=== PATIENT | female | born 1965 | race Hispanic/Latino ===

== ENCOUNTER 2017-11-21 04:53 | Inpatient (IN) | payer MEDICARE, MEDICAID ==
--- NOTE | 2017-11-21 05:19 | ED PDOC ---
HPI: Psych/Substance Abuse Time Seen by Provider: 11/21/17 04:57 Chief Complaint (Nursing): Psychiatric Evaluation Chief Complaint (Provider): "I'm scared" History Per: Patient, EMS History/Exam Limitations: no limitations Additional Complaint(s): 52 yo female with history of bipolar disorder presents with EMS for psychiatric evaluation. PT was [place] bizarre [place] the [place]. Pt repeatedly states she is scared. PT denies alcohol or drug use. Past Medical History Reviewed: Historical Data, Nursing Documentation, Vital Signs Vital Signs: Last Vital Signs Temp 97.7 F 11/21/17 05:08 Pulse 109 H 11/21/17 05:08 Resp 18 11/21/17 05:08 BP 136/89 11/21/17 05:08 Pulse Ox 98 11/21/17 05:08 - Medical History PMH: Bipolar Disorder - Surgical History Surgical History: No Surg Hx - Family History Family History: States: No Known Family Hx - Living Arrangements Living Arrangements: With Family - Immunization History Hx Tetanus Toxoid Vaccination: No Hx Influenza Vaccination: No Hx Pneumococcal Vaccination: No - Home Medications Home Medications: Ambulatory Orders Medication Instructions Recorded Fluticasone Nasal [Flonase] 1 spr NS BID #120 spr 11/09/17 Lorazepam [Ativan] 0.5 mg PO BID 11/09/17 Pantoprazole Sodium [Protonix] 40 mg PO DAILY 11/09/17 Risperidone 4 mg PO DAILY 11/09/17 - Allergies Allergies/Adverse Reactions: Allergies Allergy/AdvReac Type Severity Reaction Status Date / Time Penicillins Allergy Unknown unknown Verified 11/21/17 05:07 Review of Systems ROS Statement: Except As Marked, All Systems Reviewed And Found Negative Constitutional: Negative for: Fever, Chills, Sweats Psych: Positive for: Psychosis. Negative for: Suicidal ideation, Other Physical Exam - Reviewed Nursing Documentation Reviewed: Yes Vital Signs Reviewed: Yes - Physical Exam Appears: Positive for: Well, Non-toxic, No Acute Distress Head Exam: Positive for: ATRAUMATIC, NORMAL INSPECTION, NORMOCEPHALIC Skin: Positive for: Normal Color, Warm, DRY Eye Exam: Positive for: Normal appearance ENT: Positive for: Normal ENT Inspection Neck: Positive for: Normal, Painless ROM Cardiovascular/Chest: Positive for: Regular Rate, Rhythm Respiratory: Positive for: Normal Breath Sounds. Negative for: Accessory Muscle Use, Respiratory Distress Back: Positive for: Normal Inspection Extremity: Positive for: Normal ROM Neurologic/Psych: Positive for: Alert, Oriented - ECG O2 Sat by Pulse Oximetry: 98 Pulse Ox Interpretation: Normal Medical Decision Making Medical Decision Making: Continued care by Dr. Atwood. Disposition - Clinical Impression Clinical Impression: Encounter for psychiatric assessment - Patient ED Disposition Is Patient to be Admitted: Transfer of Care - Disposition Disposition: Transfer of Care Disposition Time: 06:10 Condition: STABLE Forms: [employer] (Senegalese)
[2017-11-21 05:44] LABS: SQUAMOUS EPITHIAL 2 /hpf (0-5); URINE BACTERIA OCC (<OCC); URINE BILIRUBIN NEGATIVE (NEGATIVE); URINE BLOOD NEGATIVE (NEGATIVE); URINE CLARITY SLIGHTY-CLOUDY (Clear); URINE COLOR YELLOW (YELLOW); URINE GLUCOSE (UA) NEG (Normal); URINE LEUKOCYTE ESTERASE NEG Leu/uL (Negative); URINE PROTEIN NEGATIVE (NEGATIVE); URINE UROBILINOGEN 0.2-1.0 mg/dL (0.2-1.0)
[2017-11-21 05:56] LABS: BARBITURATES, UR NEGATIVE (NEGATIVE); BENZODIAZEPINES, UR NEGATIVE (NEGATIVE); OPIATES, UR NEGATIVE (NEGATIVE); PHENCYCLIDINE, UR NEGATIVE (NEGATIVE)
--- NOTE | 2017-11-21 06:11 | ED PDOC ---
- ECG ECG Rhythm: Positive for: Normal QRS, Normal ST Segment, Sinus Rhythm Rate: 77 O2 Sat by Pulse Oximetry: 98 (RA) Pulse Ox Interpretation: Normal Medical Decision Making Medical Decision Making: Time: 6:00 Patient was signed out to me by XANDER Dickinson pending crisis evaluation and final disposition. Crisis evaluation completed. Patient will be admitted for Bipolar disorder under Dr. Hammond. 7:00 Patient will be signed out to Dr. Zuluaga pending CMP and CBC. Scribe Attestation: Documented by Raina Reeder, acting as a scribe for Ernst Atwood MD. Provider Scribe Attestation: All medical record entries made by the Scribe were at my direction and personally dictated by me. I have reviewed the chart and agree that the record accurately reflects my personal performance of the history, physical exam, medical decision making, and the department course for this patient. I have also personally directed, reviewed, and agree with the discharge instructions and disposition. Disposition - Clinical Impression Clinical Impression: Encounter for psychiatric assessment, Bipolar disorder - POA Present On Arrival: None - Disposition Disposition: Transfer of Care Disposition Time: 07:00 Condition: STABLE
[2017-11-21 07:36] LABS: ALB/GLOB RATIO 1.4 (1.0-2.1); ALBUMIN 4.4 g/dL (3.5-5.0); ALT/SGPT 40 U/L (9-52); AST/SGOT 29 U/L (14-36); BLOOD UREA NITROGEN 15 mg/dl (7-17); CALCIUM 9.7 mg/dL (8.4-10.2); GFR NON-AFRICAN AMERICAN > 60
[2017-11-21 07:42] LABS: HEMOGLOBIN 14.1 g/dL (12.0-16.0); MEAN CELL VOLUME 85.6 fl (81.0-99.0); MEAN CORPUSCULAR HEMOGLOBIN 28.8 pg (27.0-31.0); MEAN CORPUSCULAR HGB CONC 33.7 g/dL (33.0-37.0); RBC 4.88 Mil/uL (3.80-5.20); RED CELL DISTRIBUTION WIDTH 14.3 % (11.5-14.5); WHITE BLOOD COUNT 7.7 K/uL (4.8-10.8)
--- NOTE | 2017-11-21 08:12 | ED PDOC ---
- Laboratory Results Result Diagrams: 11/21/17 06:50 11/21/17 06:50 - ECG O2 Sat by Pulse Oximetry: 98 (RA) Medical Decision Making Medical Decision Making: Medically stable for psychiatric admission Disposition - Clinical Impression Clinical Impression: Encounter for psychiatric assessment, Bipolar disorder - POA Present On Arrival: None - Disposition Disposition: Admitted as In-Patient Disposition Time: 08:11 Condition: FAIR
[2017-11-21 09:05] VITALS: O2SAT 94
[2017-11-21] MEDS ORDERED: Magnesium Hydroxide Susp 30 ml UD PO PRN (10:51)
[2017-11-21] MEDS ORDERED: Alum-Mag Hydrox-Simethicone Susp (30 mL) PO PRN (10:51)
[2017-11-21] MEDS ORDERED: DiphenhydrAMINE 50 mg/ml Inj IM PRN (10:51)
--- NOTE | 2017-11-21 11:14 | PCM.PSYCH ---
Initial Psychiatric Evaluation - Initial Psychiatric Evaluation Type of Admission: Voluntary Legal Status: Capacity Chief Complaint (in patient's own words): I got lost outside Patient's Reaction to Hospitalization: pt requested help History of Present Illness and Precipitating Events: pt is a 52 ys old female, with previous psychiatric diagnosis of schizophrenia brought to ER by police after exhibiting disorganized behavior by train station pt in ER presented with disorganized speech, loose association, guarded and paranoid , reportedly pt has been discharged two weeks ago from [facility], non compliant with medications or follow up, started decompensating and became increasingly disorganized and was as per pt asked to leave the [facility] pt on the unit presenting with disorganized thought process, loose association, unable to verbalize why she is in the hospital and exhibiting thought blocking and internally preoccupied appears responding to internal stimuli pt denied command hallucinations, denied suicidal or homicidal ideation collateral information CW spoke to Venessa from [facility] who stated pt was admitted to their psych unit last month from 10/15-10/30. She stated pt has an hx of schizophrenia, bipolar d/o , and anxiety. She stated pt is homeless. She stated pt was confused and disorganized last month. She stated pt was staying at [facility]. Current Medications: Active Medications Generic Name Dose Route Start Last Admin Trade Name Freq PRN Reason Stop Dose Admin Acetaminophen 650 mg 11/21/17 10:51 Tylenol 325mg Tab PO Q4 PRN Pain, moderate (4-7) Al Hydrox/Mg Hydrox/Simethicone 30 ml 11/21/17 10:51 Maalox Plus 30 Ml PO Q4 PRN Dyspepsia Diphenhydramine HCl 50 mg 11/21/17 10:51 Benadryl IM Q6 PRN Extrapyramidal S/S Unable PO Diphenhydramine HCl 50 mg 11/21/17 10:51 Benadryl PO Q6 PRN Extrapyramidal Symptoms Haloperidol 5 mg 11/21/17 10:51 Haldol PO Q6 PRN Agitation Haloperidol Lactate 5 mg 11/21/17 10:51 Haldol IM Q6 PRN Agitation, Unable to Take PO Lorazepam 1 mg 11/21/17 10:51 Ativan PO Q4 PRN Anxiety/Agitation Magnesium Hydroxide 30 ml 11/21/17 10:51 Milk Of Magnesia PO HS PRN Constipation Risperidone 1 mg 11/21/17 11:00 Risperdal M-Tab PO DAILY [facility] Past Psychiatric History - Past Psychiatric History Explanation of prior treatment: pt reported multiple inpatient hospitalizations, hx of non compliance with treatment or follow up History of ETOH/Drug Use: pt denied Pertinent Medical Hx (Current Medical&Sleep Prob, Allergies): Allergies Allergy/AdvReac Type Severity Reaction Status Date / Time Penicillins Allergy Unknown unknown Verified 11/21/17 05:07 Fluticasone Nasal [Flonase] 1 spr NS BID #120 spr 11/09/17 Lorazepam [Ativan] 0.5 mg PO BID 11/09/17 Pantoprazole Sodium [Protonix] 40 mg PO DAILY 11/09/17 Risperidone 4 mg PO DAILY 11/09/17 Mental Status Examination - Personal Presentation Personal Presentation: Looks older than stated age - Affect Affect: Constricted, Depressed - Motor Activity Motor Activity: Psychomotor Retardation - Reliability in Providing Information Reliability in Providing Information: Poor, due to alteration in thoughts, Poor , due to altered mood - Speech Speech: Disorganized, Irrelevant, Tangential - Mood Mood: Anxious - Formal Thought Process Formal Thought Process: Paranoia, Loosening of associations, Flight of ideas, Neologism - Hallucinations/Delusions Additional comments: pt denied perceptual disturbances, appears internally preoccupied - Obsessions/Compulsions Obsessions: No Compulsions: No - Cognitive Functions Orientation: Person Attention/Concentration: Easily distracted Abstract Thinking: Munday Judgement: Imparied, as evidence by: Poor judgement, Imparied, as evidence by: Lack of insight into illness - Risk Risk: Diminished functioning - Strength & Assets Inventory Strength & Assets Inventory: Life experience - Limitations Additional comments: poor compliance DSM 5 DX - DSM 5 DSM 5 Diagnosis: schizophrenia disorganized type - Recommended/Plan of Treatment Treatment Recommendations and Plan of Treatment: pt will be started on risperidone 1mg daily and 2mg qhs trazodone 50mg qhs pt will be monitored for psychopharmacological effects and side effect profile group and supportive therapy social media intern would contact senior living for collateral information Projected ELOS: 7 days Prognosis: guarded
[2017-11-21] MEDS: Risperidone M tab 1 MG PO SCH (13:25)
--- NOTE | 2017-11-21 18:03 | CP.PCM.CON ---
History of Present Illness - History of Present Illness History of Present Illness: 52 y/o female, with PMH of schizophrenia was brought to ER by police [place] station.Patient has long history of schizophrenia and was recently discharged from [facility] psychiatric unit.Patient in ER presented with disorganized speech ad thought process and is admitted to psych unit. Medicine consult called. At present she denies any pain or discomfort but unable to carry a proper conversation and answer questions appropriately Denies any chest pain or SOB , urinary sx , abdominal pain , cough Allergies ; NKDa PMH : schizophrenia Medications ; risperdal Surgery '; None family history ; None Social history ; Lives in [facility] , homeless, does not like to answer about her marital status, denies ETOH or drug abuse, smokes ?? unemployed Past Patient History - Infectious Disease Hx of Infectious Diseases: None - Past Social History Smoking Status: Heavy Smoker > 10 Cigarettes Daily - CARDIAC Hx Cardiac Disorders: No - PULMONARY Hx Respiratory Disorders: No - NEUROLOGICAL Hx Neurological Disorder: No Hx Seizures: No - HEENT Hx HEENT Problems: No - RENAL Hx Chronic Kidney Disease: No - ENDOCRINE/METABOLIC Hx Endocrine Disorders: No - HEMATOLOGICAL/ONCOLOGICAL Hx Blood Disorders: No - INTEGUMENTARY Hx Dermatological Problems: No - MUSCULOSKELETAL/RHEUMATOLOGICAL Hx Musculoskeletal Disorders: No - GASTROINTESTINAL Hx Gastrointestinal Disorders: No - GENITOURINARY/GYNECOLOGICAL Hx Genitourinary Disorders: No - PSYCHIATRIC Hx Anxiety: Yes Hx Bipolar Disorder: Yes Hx Schizophrenia: Yes Hx Substance Use: No - SURGICAL HISTORY Hx Surgeries: No - ANESTHESIA Hx Anesthesia: No Meds Allergies/Adverse Reactions: Allergies Allergy/AdvReac Type Severity Reaction Status Date / Time Penicillins Allergy Unknown unknown Verified 11/21/17 05:07 - Medications Medications: Current Medications Acetaminophen (Tylenol 325mg Tab) 650 mg PO Q4 PRN PRN Reason: Pain, moderate (4-7) Al Hydrox/Mg Hydrox/Simethicone (Maalox Plus 30 Ml) 30 ml PO Q4 PRN PRN Reason: Dyspepsia Benztropine Mesylate (Cogentin) 0.5 mg PO HS MARCY Diphenhydramine HCl (Benadryl) 50 mg IM Q6 PRN PRN Reason: Extrapyramidal S/S Unable PO Diphenhydramine HCl (Benadryl) 50 mg PO Q6 PRN PRN Reason: Extrapyramidal Symptoms Haloperidol (Haldol) 5 mg PO Q6 PRN PRN Reason: Agitation Haloperidol Lactate (Haldol) 5 mg IM Q6 PRN PRN Reason: Agitation, Unable to Take PO Lorazepam (Ativan) 1 mg PO Q4 PRN PRN Reason: Anxiety/Agitation Last Admin: 11/21/17 13:25 Dose: 1 mg Magnesium Hydroxide (Milk Of Magnesia) 30 ml PO HS PRN PRN Reason: Constipation Risperidone (Risperdal M-Tab) 1 mg PO DAILY MARCY Last Admin: 11/21/17 13:25 Dose: 1 mg Risperidone (Risperdal M-Tab) 2 mg PO HS MARCY Trazodone HCl (Desyrel) 50 mg PO HS MARCY Results - Vital Signs Recent Vital Signs: Last Vital Signs Temp 98.4 F 11/21/17 09:00 Pulse 85 11/21/17 09:00 Resp 20 11/21/17 15:55 BP 130/75 11/21/17 09:00 Pulse Ox 94 L 11/21/17 09:00 - Labs Result Diagrams: 11/21/17 06:50 11/21/17 06:50 Labs: Laboratory Results - last 24 hr 11/21/17 11/21/17 11/21/17 05:31 05:31 06:50 WBC RBC Hgb Hct MCV MCH MCHC RDW Plt Count Sodium 140 Potassium 4.1 Chloride 104 Carbon Dioxide 27 Anion Gap 13 BUN 15 Creatinine 0.6 L Est GFR ( Amer) > 60 Est GFR (Non-Af Amer) > 60 Random Glucose 81 Calcium 9.7 Total Bilirubin 2.1 H AST 29 ALT 40 Alkaline Phosphatase 63 Total Protein 7.4 Albumin 4.4 Globulin 3.0 Albumin/Globulin Ratio 1.4 Urine Color Yellow Urine Clarity Slighty-cloudy Urine pH 6.0 Ur Specific Zenia 1.009 Urine Protein Negative Urine Glucose (UA) Neg Urine Ketones Negative Urine Blood Negative Urine Nitrate Negative Urine Bilirubin Negative Urine Urobilinogen 0.2-1.0 Ur Leukocyte Esterase Neg Urine RBC (Auto) 1 Urine Microscopic WBC 1 Ur Squamous Epith Cells 2 Urine Bacteria Occ H Urine Opiates Screen Negative Urine Methadone Screen Negative Ur Barbiturates Screen Negative Ur Phencyclidine Scrn Negative Ur Amphetamines Screen Negative U Benzodiazepines Scrn Negative U Oth Cocaine Metabols Negative U Cannabinoids Screen Negative Alcohol, Quantitative < 10 11/21/17 06:50 WBC 7.7 RBC 4.88 Hgb 14.1 Hct 41.8 MCV 85.6 MCH 28.8 MCHC 33.7 RDW 14.3 Plt Count 214 Sodium Potassium Chloride Carbon Dioxide Anion Gap BUN Creatinine Est GFR ( Amer) Est GFR (Non-Af Amer) Random Glucose Calcium Total Bilirubin AST ALT Alkaline Phosphatase Total Protein Albumin Globulin Albumin/Globulin Ratio Urine Color Urine Clarity Urine pH Ur Specific Zenia Urine Protein Urine Glucose (UA) Urine Ketones Urine Blood Urine Nitrate Urine Bilirubin Urine Urobilinogen Ur Leukocyte Esterase Urine RBC (Auto) Urine Microscopic WBC Ur Squamous Epith Cells Urine Bacteria Urine Opiates Screen Urine Methadone Screen Ur Barbiturates Screen Ur Phencyclidine Scrn Ur Amphetamines Screen U Benzodiazepines Scrn U Oth Cocaine Metabols U Cannabinoids Screen Alcohol, Quantitative Assessment & Plan - Assessment and Plan (Free Text) Assessment: 52 y/o female, with PMH of schizophrenia was brought to ER by police [place] station.Patient has long history of schizophrenia and was recently discharged from [facility] psychiatric unit.Patient in ER presented with disorganized speech ad thought process and is admitted to psych unit. Medicine consult called. At present she denies any pain or discomfort but unable to carry a proper conversation and answer questions appropriately Denies any chest pain or SOB , urinary sx , abdominal pain , cough. 1. Schizophrenia management as per psych no medical issues identified at present will follow up
[2017-11-21] MEDS ORDERED: Risperidone M TAB 2 MG PO SCH (22:00)
[2017-11-22 08:36] LABS: T4 11.7 ug/dl (5.5-11.0)
[2017-11-22] MEDS: Risperidone M tab 1 MG PO SCH ×2 (09:02→17:30)
[2017-11-22] MEDS ORDERED: Divalproex 500 mg DR(BID formulation) PO STA (12:07)
--- NOTE | 2017-11-22 12:20 | PCM.PYCHPN ---
Psychiatric Progress Note - Psychiatric Progress Note Patient seen today, length of contact: pt evaluated discussed with team chart reviewed Patient Chief Complaint: I want to leave [place] Problems Identified/Issues Discussed: pt on evaluation presenting with disorganized thought process, , derailment , neologism, loose association floridly psychotic exhibiting F[place]oli phenomena identifying some staff members as her own family members, mood is very labile , at times tearful and other times, irritable and edgy, verbally aggressive and sexually pre occupied pt with grandiose delusions and limited insight into illness, neurocognitive deficits elicited , pt mini mental status noted to be 25/30 oriented to person partially to place, stating season is , pt unable to provide information about childhood, her family members or circumstances leading to her admission denied recent substance use, agreed to comply with medications denied command hallucinations , denied suicidal or homicidal ideation Medical Problems: pt reported multiple inpatient hospitalizations, hx of non compliance with treatment or follow up DSM 5 Symptoms Update: schizoaffective disorder bipolar Major neurocognitive disorder Medication Change: Yes (start haldol and depakote ) Medical Record Reviewed: Yes Mental Status Examination - Cognitive Function Orientation: Person Memory: Impaired, Recent Attention: Poor Concentration: Poor Association: Loose Fund of Knowledge: Poor Decription of patient's judgement and insights: poor insight and judgment - Mood Mood: Anxious - Affect Affect: Depressed Additional comments: labile, elevated - Speech Speech: Pressured - Formal Thought Process Formal Thought Process: Paranoia, Loosening of associations, Flight of ideas, Neologism - Suicidal Ideation Suicidal Ideation: No - Homicidal Ideation Homicidal Ideation: No Goal/Treatment Plan - Goal/Treatment Plan Need for Continued Stay: Severe depression anxiety, Discharge may exacerbated symptoms, Failed transitioning, Severe functional impairment Progress Toward Problem(s) and Goals/Treatment Plan: discontinue risperidone start haldol 2mg tid and cogentin 0.5mg tid , will increase haldol gradually start depakote 500mg bid pt will be monitored for psychopharmacological effects and side effect profile group and supportive therapy social worker psychiatric would contact [facility] for collateral information
[2017-11-22] MEDS ORDERED: Divalproex 500 mg DR(BID formulation) PO SCH (17:00)
[2017-11-22] MEDS ORDERED: OXcarbazepine 300 mg/5 ml Syringe PO SCH (17:00)
[2017-11-22] MEDS ORDERED: Petrolatum UD PAK TOP PRN (17:39)
[2017-11-23] MEDS: Risperidone M tab 1 MG PO SCH (08:51)
--- NOTE | 2017-11-23 15:09 | PCM.PYCHPN ---
Psychiatric Progress Note - Psychiatric Progress Note Patient seen today, length of contact: pt evaluated discussed with team chart reviewed Patient Chief Complaint: I do not want my family only my boyfriend Problems Identified/Issues Discussed: pt on evaluation continues to be manic , presenting with labile mood and affect , disorganized loud speech , intrusive with other patients thought process not goal directed, with grandiose delusions ,edgy and irritable pt with limited insight into illness , needs a lot of encouragement to comply with medications and to attend groups pt denied command hallucinations, denied suicidal or homicidal ideation Medical Problems: pt reported multiple inpatient hospitalizations, hx of non compliance with treatment or follow up DSM 5 Symptoms Update: schizoaffective disorder bipolar Medication Change: Yes (increase risperidone and trileptal) Medical Record Reviewed: Yes Mental Status Examination - Cognitive Function Orientation: Person, Place Memory: Impaired, Recent Attention: Poor Concentration: Poor Association: Loose Fund of Knowledge: Poor Decription of patient's judgement and insights: poor insight and judgment - Mood Mood: Anxious - Affect Affect: Broad, Depressed Additional comments: labile irritable, manic - Speech Speech: Loud, Pressured - Formal Thought Process Formal Thought Process: Paranoia, Loosening of associations, Flight of ideas, Neologism - Suicidal Ideation Suicidal Ideation: No - Homicidal Ideation Homicidal Ideation: No Goal/Treatment Plan - Goal/Treatment Plan Need for Continued Stay: Severe depression anxiety, Discharge may exacerbated symptoms, Failed transitioning, Severe functional impairment Progress Toward Problem(s) and Goals/Treatment Plan: increase risperidone to 4mg bid, cogentin 0.5mg bid increase trileptal to 300mg daily and 600mg qhs encourage medication compliance pt will be monitored for psychopharmacological effects and side effect profile group and supportive therapy web content & social media manager would contact skilled nursing for collateral information
[2017-11-23] MEDS: Risperidone M TAB 2 MG PO SCH (17:37)
[2017-11-23] MEDS: Benzocaine/Menthol (Cepacol) Lozenge PO PRN ×2 (17:42→22:38)
[2017-11-24] MEDS: guaiFENesin DM 200 mg-20 mg/10 ml UD PO PRN (07:36)
[2017-11-24] MEDS: Risperidone M TAB 2 MG PO SCH ×2 (09:30→17:35)
--- NOTE | 2017-11-24 11:15 | PCM.PYCHPN ---
Psychiatric Progress Note - Psychiatric Progress Note Patient seen today, length of contact: Patient evaluated, case discussed w/ team , chart reviewed Patient Chief Complaint: "I need to rest today." Problems Identified/Issues Discussed: Patient continues to be manic, labile, inappropriately happy at times, w/ pressured, disorganized, non-linear speech. She denies AH/VH/SI/HI. She has poor insight into her current psychiatric decompensation. Medication Change: No Medical Record Reviewed: Yes Consults ordered or reviewed: Medicine consult Mental Status Examination - Cognitive Function Orientation: Person, Place Memory: Impaired, Recent Attention: Poor Concentration: Poor Association: Loose Fund of Knowledge: Poor Decription of patient's judgement and insights: Poor I/J - Mood Mood: Anxious - Affect Affect: Other (Labile) - Speech Speech: Pressured - Formal Thought Process Formal Thought Process: Loosening of associations, Flight of ideas Psychotic Thoughts and Behaviors: Denies AH/VH but seems internally preoccupied at times - Suicidal Ideation Suicidal Ideation: No - Homicidal Ideation Homicidal Ideation: No Goal/Treatment Plan - Goal/Treatment Plan Need for Continued Stay: Severe depression anxiety, Discharge may exacerbated symptoms, Failed transitioning, Severe functional impairment Progress Toward Problem(s) and Goals/Treatment Plan: Schizoaffective Disorder -Continue Risperdal, Cogentin, Trileptal and Trazodone -Individual and group therapy -Psychoeducation -Disposition planning Estimated Date of D/C: 11/29/17
--- NOTE | 2017-11-25 07:56 | PCM.PYCHPN ---
Psychiatric Progress Note - Psychiatric Progress Note Patient seen today, length of contact: Patient evaluated, case discussed w/ team , chart reviewed Patient Chief Complaint: "I want to be a larriman for fruits and vegetables." Problems Identified/Issues Discussed: Patient continues to be manic, labile, inappropriately happy at times, w/ pressured, disorganized, non-linear speech. +Poor sleep. +Refuses medication intermittently. She denies AH/VH/SI/HI. She has poor insight into her current psychiatric decompensation. +Grandiose. She believes she has supernatural hearing abilities. She is walking around w/ a hospital face mask, stating that she needs to protect herself from dust, pollution from traffic (despite being indoors) and cigarette smoke that comes from other people. Medication Change: No Medical Record Reviewed: Yes Consults ordered or reviewed: Medicine consult Mental Status Examination - Cognitive Function Orientation: Person, Place Memory: Impaired, Recent Attention: Poor Concentration: Poor Association: Loose Fund of Knowledge: Poor Decription of patient's judgement and insights: Poor I/J - Mood Mood: Anxious - Affect Affect: Other (Labile) - Speech Speech: Pressured - Formal Thought Process Formal Thought Process: Loosening of associations, Flight of ideas Psychotic Thoughts and Behaviors: Denies AH/VH but seems internally preoccupied at times - Suicidal Ideation Suicidal Ideation: No - Homicidal Ideation Homicidal Ideation: No Goal/Treatment Plan - Goal/Treatment Plan Need for Continued Stay: Severe depression anxiety, Discharge may exacerbated symptoms, Failed transitioning, Severe functional impairment Progress Toward Problem(s) and Goals/Treatment Plan: Schizoaffective Disorder -Continue Risperdal, Cogentin, Trileptal and Trazodone -Individual and group therapy -Psychoeducation -Disposition planning Estimated Date of D/C: 11/29/17
[2017-11-25] MEDS: Risperidone M TAB 2 MG PO SCH ×2 (08:48→17:48)
[2017-11-25] MEDS: guaiFENesin DM 200 mg-20 mg/10 ml UD PO PRN (08:48)
[2017-11-25] MEDS ORDERED: Tuberculin 5 Units/0.1 ml Inj ID ONE (16:00)
[2017-11-25] MEDS: Benzocaine/Menthol (Cepacol) Lozenge PO PRN (17:47)
--- NOTE | 2017-11-26 09:33 | PCM.PYCHPN ---
Psychiatric Progress Note - Psychiatric Progress Note Patient seen today, length of contact: Patient evaluated, case discussed w/ team , chart reviewed Patient Chief Complaint: "I'm feeling better." Problems Identified/Issues Discussed: Patient continues to be inappropriately happy w/ tangential speech, but she is calmer, less manic and more organized on conversation. She has been compliant w / medications. She continues to have sleep disturbances. She continues to have poor insight/judgment. Medication Change: No Medical Record Reviewed: Yes Consults ordered or reviewed: Medicine consult Mental Status Examination - Cognitive Function Orientation: Person, Place Memory: Impaired, Recent Attention: Poor Concentration: Poor Association: Loose Fund of Knowledge: Poor Decription of patient's judgement and insights: Poor I/J - Mood Mood: Euphoric - Affect Affect: Other (Labile) - Speech Speech: Pressured - Formal Thought Process Formal Thought Process: Loosening of associations, Flight of ideas Psychotic Thoughts and Behaviors: Denies AH/VH - Suicidal Ideation Suicidal Ideation: No - Homicidal Ideation Homicidal Ideation: No Goal/Treatment Plan - Goal/Treatment Plan Need for Continued Stay: Severe depression anxiety, Discharge may exacerbated symptoms, Failed transitioning, Severe functional impairment Progress Toward Problem(s) and Goals/Treatment Plan: Schizoaffective Disorder -Continue Risperdal, Cogentin, Trileptal and Trazodone -Individual and group therapy -Psychoeducation -Disposition planning Estimated Date of D/C: 11/29/17
[2017-11-26] MEDS: Risperidone M TAB 2 MG PO SCH ×2 (09:39→18:22)
[2017-11-26] MEDS: Pantoprazole 40 mg EC Tab PO SCH (09:39)
[2017-11-26] MEDS: Benzocaine/Menthol (Cepacol) Lozenge PO PRN (09:43)
[2017-11-26] MEDS: guaiFENesin DM 200 mg-20 mg/10 ml UD PO PRN (18:25)
[2017-11-27] MEDS: Pantoprazole 40 mg EC Tab PO SCH (08:27)
[2017-11-27] MEDS: Risperidone M TAB 2 MG PO SCH ×2 (08:27→18:10)
[2017-11-27] MEDS: guaiFENesin DM 200 mg-20 mg/10 ml UD PO PRN (08:27)
--- NOTE | 2017-11-27 15:02 | PCM.PYCHPN ---
Psychiatric Progress Note - Psychiatric Progress Note Patient seen today, length of contact: Patient evaluated, case discussed w/ team , chart reviewed Patient Chief Complaint: I want to find a job Problems Identified/Issues Discussed: pt evaluated with treatment team, less labile and thought process less disorganized, continues to have overproductive speech, discussed with pt importance of medication compliance , pt agreed to be stated on risperidone consta to ensure compliance pt denied command hallucinations, denied suicidal or homicidal ideation Medical Problems: pt reported multiple inpatient hospitalizations, hx of non compliance with treatment or follow up DSM 5 Symptoms Update: schizoaffective disorder bipolar Medication Change: Yes (start risperidone consta ) Medical Record Reviewed: Yes Mental Status Examination - Cognitive Function Orientation: Person, Place Memory: Impaired, Recent Attention: WNL Concentration: Poor Association: WNL Fund of Knowledge: Poor Decription of patient's judgement and insights: poor insight and judgment - Mood Mood: Neutral - Affect Affect: Other Additional comments: expanded - Speech Additional comments: over productive - Formal Thought Process Formal Thought Process: Circumstantial Psychotic Thoughts and Behaviors: pt denied perceptual disturbances, non elicited - Suicidal Ideation Suicidal Ideation: No - Homicidal Ideation Homicidal Ideation: No Goal/Treatment Plan - Goal/Treatment Plan Need for Continued Stay: Severe depression anxiety, Discharge may exacerbated symptoms, Failed transitioning, Severe functional impairment Progress Toward Problem(s) and Goals/Treatment Plan: continue risperidone to 4mg bid, cogentin 0.5mg bid, start risperidone consta 50mg IM q 2weeks to ensure compliance itrileptal 300mg daily and 600mg qhs encourage medication compliance pt will be monitored for psychopharmacological effects and side effect profile group and supportive therapy Estimated Date of D/C: 11/29/17
[2017-11-27 18:54] VITALS: BMI 27.7
[2017-11-28] MEDS: Benzocaine/Menthol (Cepacol) Lozenge PO PRN (03:54)
[2017-11-28] MEDS: Risperidone M TAB 2 MG PO SCH ×2 (08:29→16:53)
[2017-11-28] MEDS: Pantoprazole 40 mg EC Tab PO SCH (08:29)
[2017-11-28 09:10] VITALS: RESP 18
--- NOTE | 2017-11-28 13:23 | PCM.PYCHPN ---
Psychiatric Progress Note - Psychiatric Progress Note Patient seen today, length of contact: Patient evaluated, case discussed w/ team , chart reviewed Patient Chief Complaint: I agree to take the injection as long as it will help me Problems Identified/Issues Discussed: pt evaluated , mood reported better, affect less labile, continues to have over productive speech and tangential thought process, pt more compliant with treatment agreed to receive depot injection / risperidone consta 50mg IM, to ensure compliance, no reported side effects discussed with pt also referral to [facility] case repairer, pt agreed,pt reported improved sleep and appetite, denied command hallucinations, denied suicidal or homicidal ideation Medical Problems: pt reported multiple inpatient hospitalizations, hx of non compliance with treatment or follow up DSM 5 Symptoms Update: schizoaffective disorder bipolar Medication Change: No (start risperidone consta ) Medical Record Reviewed: Yes Mental Status Examination - Cognitive Function Orientation: Person, Place Memory: Impaired, Recent Attention: WNL Concentration: Poor Association: Loose Fund of Knowledge: Poor Decription of patient's judgement and insights: poor insight and judgment - Mood Mood: Neutral - Affect Affect: Other Additional comments: expansive - Speech Additional comments: over productive - Formal Thought Process Formal Thought Process: Circumstantial Psychotic Thoughts and Behaviors: pt denied perceptual disturbances, non elicited - Suicidal Ideation Suicidal Ideation: No - Homicidal Ideation Homicidal Ideation: No Goal/Treatment Plan - Goal/Treatment Plan Need for Continued Stay: Severe depression anxiety, Discharge may exacerbated symptoms, Failed transitioning, Severe functional impairment Progress Toward Problem(s) and Goals/Treatment Plan: continue risperidone o 4mg bid, cogentin 0.5mg bid, start risperidone consta 50mg IM q 2weeks to ensure compliance 1st dose 11/27/17 trileptal 300mg daily and 600mg qhs referral to [facility] group and supportive therapy Estimated Date of D/C: 11/29/17
[2017-11-29] MEDS: guaiFENesin DM 200 mg-20 mg/10 ml UD PO PRN (07:31)
[2017-11-29] MEDS: Risperidone M TAB 2 MG PO SCH ×2 (08:44→16:08)
[2017-11-29] MEDS: Pantoprazole 40 mg EC Tab PO SCH (08:45)
--- NOTE | 2017-11-29 12:27 | PCM.PYCHPN ---
Psychiatric Progress Note - Psychiatric Progress Note Patient seen today, length of contact: Patient evaluated, case discussed w/ team , chart reviewed Patient Chief Complaint: I want to be with my boy friend Problems Identified/Issues Discussed: pt evaluated , continues to be hypomanic, with over productive speech and circumstantial thought process, needs a lot of encouragement to comply with medications, discussed with pt increasing dose of trileptal, discussed meeting with [facility] tomorrow [facility], psychoeducation provided in reference to importance of compliance with medications, no reported side effects pt attending groups , denied any current perceptual disturbances, denied suicidal or homicidal ideation Medical Problems: pt reported multiple inpatient hospitalizations, hx of non compliance with treatment or follow up DSM 5 Symptoms Update: schizoaffective disorder bipolar Medication Change: Yes (increase trileptal ) Medical Record Reviewed: Yes Mental Status Examination - Cognitive Function Orientation: Person, Place Memory: Impaired, Recent Attention: WNL Concentration: Poor Association: Loose Fund of Knowledge: Poor Decription of patient's judgement and insights: poor insight and judgment - Mood Mood: Neutral - Affect Affect: Other - Speech Speech: Pressured - Formal Thought Process Formal Thought Process: Circumstantial Psychotic Thoughts and Behaviors: pt denied perceptual disturbances, non elicited - Suicidal Ideation Suicidal Ideation: No - Homicidal Ideation Homicidal Ideation: No Goal/Treatment Plan - Goal/Treatment Plan Need for Continued Stay: Severe depression anxiety, Discharge may exacerbated symptoms, Failed transitioning, Severe functional impairment Progress Toward Problem(s) and Goals/Treatment Plan: continue risperidone 4mg bid, cogentin 0.5mg bid, start risperidone consta 50mg IM q 2weeks to ensure compliance 1st dose 11/27/17 increase trileptal 600 mg bid meeting with [facility] tomorrow no group and supportive therapy Estimated Date of D/C: 12/01/17
[2017-11-29] MEDS: Benzocaine/Menthol (Cepacol) Lozenge PO PRN (13:46)
[2017-11-30] MEDS: Risperidone M TAB 2 MG PO SCH ×2 (08:52→16:44)
[2017-11-30] MEDS: Pantoprazole 40 mg EC Tab PO SCH ×2 (09:02→12:11)
[2017-11-30 09:05] VITALS: TEMP 97.7
--- NOTE | 2017-11-30 16:04 | PCM.PYCHPN ---
Psychiatric Progress Note - Psychiatric Progress Note Patient seen today, length of contact: Patient evaluated, case discussed w/ team , chart reviewed Medication Change: Yes (increase trileptal ) Medical Record Reviewed: Yes Mental Status Examination - Cognitive Function Orientation: Person, Place Memory: Impaired, Recent Attention: WNL Concentration: Poor Association: Loose Fund of Knowledge: Poor - Mood Mood: Neutral - Affect Affect: Other - Speech Speech: Pressured - Formal Thought Process Formal Thought Process: Circumstantial - Suicidal Ideation Suicidal Ideation: No - Homicidal Ideation Homicidal Ideation: No Goal/Treatment Plan - Goal/Treatment Plan Need for Continued Stay: Severe depression anxiety, Discharge may exacerbated symptoms, Failed transitioning, Severe functional impairment Estimated Date of D/C: 12/01/17
[2017-11-30] MEDS: guaiFENesin DM 200 mg-20 mg/10 ml UD PO PRN (22:43)
[2017-11-30] MEDS: Benzocaine/Menthol (Cepacol) Lozenge PO PRN (23:24)
--- NOTE | 2017-12-01 08:18 | PCM.PYCHDC ---
Mental Status Examination - Mental Status Examination Orientation: Person, Place, Situation, Time Memory: Intact Mood: Neutral Affect: Broad Speech: Appropriate Attention: WNL Concentration: WNL Association: WNL Fund of Knowledge: WNL Formal Thought Process: Loosening of associations Description of patient's judgement and insight: Fair I/J Psychotic Thoughts and Behaviors: Denies AH/VH Suicidal Ideation: No Current Homicidal Ideation?: No Discharge Summary - Discharge Note Reason for Hospitalization: As per initial HPI note: pt is a 52 ys old female, with previous psychiatric diagnosis of schizophrenia brought to ER by police [place] exhibiting disorganized behavior [place] pt in ER presented with disorganized speech, loose association, guarded and paranoid , reportedly pt has been discharged two weeks ago from [facility], non compliant with medications or follow up, started decompensating and became increasingly disorganized and was as per pt asked to leave the nursing home pt on the unit presenting with disorganized thought process, loose association, unable to verbalize why she is in the hospital and exhibiting thought blocking and internally preoccupied appears responding to internal stimuli pt denied command hallucinations, denied suicidal or homicidal ideation collateral information CW spoke to Venessa from [facility] who stated pt was admitted to their psych unit last month from 10/15-10/30. She stated pt has an hx of schizophrenia, bipolar d/o , and anxiety. She stated pt is homeless. She stated pt was confused and disorganized last month. She stated pt was staying at [facility]'s nursing home. Consultations:: List each consultation separately and include: 1. Reason for request. 2. Findings. 3. Follow-up Consultations: Medicine consult Summary of Hospital Course include:: 1. Description of specific treatment plan utilized for patients during their course of treatmen. 2. Summarize the time- course for resolution of acute symptoms and/or regressed behaviors. 3. Describe issues identified and worked on during hospitalization. 4. Describe medication utilized. 5. Describe medical problems identified and treated. 6. Reassessment of suicide risk Summary of Hospital Course: Patient was admitted to the hospital. Individual and group therapy were provided. Patient was stabilized on Risperdal, Trileptal, Trazodone and Cogentin. She has improved clinically. She is no longer manic and denies acute psychotic symptoms. She is psychiatrically stable for discharge at this time. NO AH/VH/SI/HI. She met with her ICMS worker yesterday to help coordinate her discharge and aftercare. Psychoeducation provided on the importance of compliance with treatment and medications. - Final Diagnosis (DSM 5) Condition upon Discharge: STABLE DSM 5: Schizoaffective Disorder Disposition: HOME/ ROUTINE Follow-up Treatment Plan: Schizoaffective Disorder -Continue Risperdal, Cogentin, Trileptal and Trazodone -Patient instructed to continue oral Risperdal until she receives the second dosage of Risperdal Consta on 12/11/17 -Individual and group therapy -Psychoeducation -Case coordinated w/ ICMS worker Prescriptions/Medication Reconciliation: Benztropine [Cogentin] 0.5 mg PO BID #60 tab OXcarbazepine [Trileptal] 600 mg PO Q12 #120 tab Pantoprazole [Protonix EC Tab] 40 mg PO DAILY #30 ect Risperidone 4 mg PO Q12 #30 tablet risperiDONE [Risperdal Consta] 50 mg IM ONCE #1 maria r traZODone [Desyrel] 100 mg PO HS #30 tab - Smoking Cessation Smoking Cessation Medication prescribed: No Reason for not providing: Not indicated - Antipsychotic Medications Pt discharged on 2 or more routine antipsychotic medications: No
[2017-12-01] MEDS: Risperidone M TAB 2 MG PO SCH (08:35)
[2017-12-01] MEDS: Pantoprazole 40 mg EC Tab PO SCH (08:36)
[2017-12-01 09:34] VITALS: BP 111/65; PULSE 79
== END 2017-12-01 10:26 | disposition home or self-care (01) | DRG 885 ==
LOC: H.ER 04:53 → H.ERHOLD 06:30 → H.PSYCH 10:11
PROVIDERS: ADMIT Psychiatry & Neurology Psychiatry; ATTEND Psychiatry & Neurology Psychiatry
PROC: GZHZZZZ Group Psychotherapy (ICD-10-PCS; principal; 2017-11-21)
PROC: GZ56ZZZ Individual Psychotherapy, Supportive (ICD-10-PCS; 2017-11-21)
DX: F25.9 Schizoaffective disorder, unspecified (principal); Z91.14 Patient's other noncompliance with medication regimen; Z91.19 Patient's noncompliance with other medical treatment and regimen; Z59.0 Homelessness; Z88.0 Allergy status to penicillin; F17.210 Nicotine dependence, cigarettes, uncomplicated; F01.50 Vascular dementia, unspecified severity, without behavioral disturbance, psychotic disturbance, mood disturbance, and anxiety